=== PATIENT | female | born 1945 | race Caucasian/White ===

== ENCOUNTER → 2019-01-04 | Outpatient (CLI) | payer OTHER ==
[2014-11-26 10:55] VITALS: BP 148/58
[~2019-01-04] MED LIST: ALPR0.5T6 PO; ASPI325T8 PO; CITA20TA6 PO; CLOP75TA57 PO; CRAN1CAP4 PO; DOCU-150 PO; FERR-36 PO; FERR500P8 MC; FURO40TA4 PO; HYDR-2761 PO; HYDR-3135 PO; IOHEXOL 300 MG/ML 100ML VIAL. IV ONE; LEVO137T3 PO; LEVO150T5 PO; LEVO50TA5 PO; LOSA-73 PO; LOVA40TA2 PO; METF500T9 PO; METO25TA4 PO; OXYB10TA PO; POTA20TA4 PO; PREG75CA PO
--- NOTE | 2019-01-05 08:50 | RAD ---
Examination: CT ABDOMEN WO/W CONTRAST History: PANCREATIC MASS, [id number] 75ML, PRIOR CT W/O SENT Comparison/Correlation: 11/01/2014 CTA aorta with runoff Findings: Axial images of the abdomen were obtained prior to and following IV contrast. Sagittal and coronal reformatted images provided. Topogram demonstrates left total hip joint prosthesis. Visualized lung bases are clear. Liver, spleen, adrenal glands, and gallbladder fossa are unremarkable. 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 At the distal aspect of the pancreas, there is a low-attenuation region which does not change much in density on postcontrast imaging. This structure measures 2.3 cm x 1.8 cm with Hounsfield units of approximately 35 on precontrast, postcontrast arterial phase and portal venous phase series. Relatively low attenuation of the pancreatic uncinate is also evident although ill-defined. No significant change in densities noted on precontrast versus postcontrast imaging. There is no pancreatic ductal dilatation. No common bile duct dilatation. Right renal upper pole calyceal calculus measuring 0.3 cm diameter is present. Right extrarenal pelvis is noted. Left extra renal pelvis is also present to a lesser extent. Atherosclerotic calcific involvement of the abdominal aorta is noted. Aortobifemoral graft is seen at the infrarenal level and opacifies with contrast. Significant atherosclerotic, calcific involvement of the [place] infrarenal abdominal aorta and iliac arteries is noted. No bowel obstruction or extraluminal gas. Nonspecific circumferential thickening of proximal jejunum likely related to contraction. No ascites or pelvic free fluid. No inflammatory changes about the cecum. Multilevel degenerative disc space narrowing of the lumbar spine from L2 to S1 noted. Laminectomy defect at the right L5 level noted. Correlate with previous intervention. 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 At the distal aspect of the pancreas, there is low attenuation present which does not enhance. This may represent a complex cystic structure or other nonaggressive process. It is new since the previous exam of 11/01/2014 CTA of the abdomen with runoff. Consider further characterization with MR of the pancreas without and with contrast. Nonobstructive right renal calculus. PQRS Compliance Statement: One or more of the following individualized dose reduction techniques were utilized for this examination: 1. Automated exposure control 2. Adjustment of the mA and/or kV according to patient size 3. Use of iterative reconstruction technique Electronically signed by: Fuad Preston MD (01/05/2019 8:47 AM) [facility]
== END | disposition home or self-care (01) ==
LOC: CT 09:55
PROVIDERS: ATTEND Internal Medicine Hematology & Oncology
DX: N20.0 Calculus of kidney (principal); M48.07 Spinal stenosis, lumbosacral region; Z90.411 Acquired partial absence of pancreas; Z87.891 Personal history of nicotine dependence
CPT/HCPCS: 74170; Q9967

== ENCOUNTER 2019-04-21 15:36 | Emergency (ER) | payer OTHER ==
[~2019-04-21] VITALS: Ht 157.5 cm; Wt 85.3 kg
[~2019-04-21 15:36] MED LIST changes: -IOHEXOL 300 MG/ML 100ML VIAL. IV ONE
--- NOTE | 2019-04-21 16:11 | PHYS DOC ---
Past Medical History Past Medical History: Anxiety, Diabetes-Type II, Fibromyalgia, High Cholesterol, Hypertension, Hypothyroid, UTI, Other Additional Past Medical Histor: PERIPHERAL NEUROPATHY, PAD (JESUS MANUEL NAVARRETE APRN) Past Surgical History: Coronary Bypass Surgery, Hip Replacement, Hysterectomy Additional Past Surgical Histo: RECTAL SEAL, BLADDER REPAIR, BILAT CARPAL TUNNEL, ANGIO SEAL CAROTID (JESUS MANUEL NAVARRETE APRN) Alcohol Use: Rarely Drug Use: None (JESUS MANUEL NAVARRETE APRN) Adult General Chief Complaint Chief Complaint: LOWER EXT PAIN HPI HPI Patient is a 74 year old female that presents with shortness of breath has been ongoing her minimally for month. The patient also has been having bilateral chest tightness, fatigue, dizziness and states this been times that she felt confused over the last month. The patient over the last several days has also been having right leg pain. The patient went and saw Dr. manzanares, a accounting auditor today who sent her to the ER for a pulmonary embolus workup. The patient has lung cancer and ended radiation in February. Denies any pain and rates it 0 out of 10 in severity. (JESUS MANUEL NAVARRETE APRN) Review of Systems Review of Systems Constitutional: Denies fever or chills. Reports dizziness and fatigue. Eyes: Denies change in visual acuity, redness, or eye pain [] HENT: Denies nasal congestion or sore throat [] Respiratory: Reports shortness of breath [] Cardiovascular: No additional information not addressed in HPI [] GI: Denies abdominal pain, nausea, vomiting, bloody stools or diarrhea [] : Denies dysuria or hematuria [] Musculoskeletal: Denies back pain or joint pain [] Integument: reports bruising. Neurologic: Denies headache, focal weakness or sensory changes [] Endocrine: Denies polyuria or polydipsia [] Complete systems were reviewed and found to be within normal limits, except as documented in this note. (JESUS MANUEL NAVARRETE APRN) Current Medications Current Medications Current Medications Medications (Trade) Dose Ordered Sig/Shyam Start Time Stop Time Status Last Admin Dose Admin Info (CONTRAST GIVEN -- Rx MONITORING) 1 each PRN DAILY PRN 04/21/19 17:30 04/21/19 19:20 DC Iohexol (Omnipaque 350 Mg/ml) 90 ml 1X ONCE 04/21/19 18:00 04/21/19 18:01 DC Potassium Chloride (Klor-Con) 60 meq 1X ONCE 04/21/19 18:00 04/21/19 18:02 DC Sodium Chloride 500 ml @ 500 mls/hr 1X ONCE 04/21/19 16:15 04/21/19 17:14 DC 04/21/19 18:21 500 MLS/HR (MICHAEL RAGLAND MD) Allergies Allergies Allergies Coded Allergies Type Severity Reaction Last Updated Verified No Known Drug Allergies 11/20/14 No (MICHAEL RAGLAND MD) Physical Exam Physical Exam Constitutional: Well developed, well nourished, no acute distress, non-toxic appearance. [] HENT: Normocephalic, atraumatic, bilateral external ears normal, oropharynx moist, no oral exudates, nose normal. [] Eyes: PERRLA, EOMI, conjunctiva normal, no discharge. [] Neck: Normal range of motion, no tenderness, supple, no stridor. [] Cardiovascular:Heart rate regular rhythm, no murmur [] Lungs & Thorax: Bilateral breath sounds clear to auscultation with exception of left lower lung wheezing. Abdomen: Bowel sounds normal, soft, no tenderness, no masses, no pulsatile masses. [] Skin: Warm, dry, no erythema, no rash. has bruising on right leg, and bruises on abdomen. Back: No tenderness, no CVA tenderness. [] Extremities: R lower leg edema and tenderness to calf and posterior knee. Neurologic: Alert and oriented X 3, normal motor function, normal sensory function, no focal deficits noted. [] Psychologic: Affect normal, judgement normal, mood normal. [] (JESUS MANUEL NAVARRETE APRN) Current Patient Data Vital Signs Vital Signs Date Time Temp Pulse Resp B/P (MAP) Pulse Ox O2 Delivery O2 Flow Rate FiO2 04/21/19 18:30 58 129/56 (80) 04/21/19 17:19 16 Room Air 04/21/19 16:18 98 04/21/19 16:00 98.3 98.3 (MICHAEL RAGLAND MD) Lab Values Laboratory Tests Test 04/21/19 16:50 04/21/19 18:20 White Blood Count 7.5 x10^3/uL (4.0-11.0) Red Blood Count 4.55 x10^6/uL (3.50-5.40) Hemoglobin 13.9 g/dL (12.0-15.5) Hematocrit 40.2 % (36.0-47.0) Mean Corpuscular Volume 88 fL (79-100) Mean Corpuscular Hemoglobin 31 pg (25-35) Mean Corpuscular Hemoglobin Concent 35 g/dL (31-37) Red Cell Distribution Width 15.0 % (11.5-14.5) H Platelet Count 188 x10^3/uL (140-400) Neutrophils (%) (Auto) 64 % (31-73) Lymphocytes (%) (Auto) 18 % (24-48) L Monocytes (%) (Auto) 12 % (0-9) H Eosinophils (%) (Auto) 5 % (0-3) H Basophils (%) (Auto) 1 % (0-3) Neutrophils # (Auto) 4.8 x10^3/uL (1.8-7.7) Lymphocytes # (Auto) 1.4 x10^3/uL (1.0-4.8) Monocytes # (Auto) 0.9 x10^3/uL (0.0-1.1) Eosinophils # (Auto) 0.4 x10^3/uL (0.0-0.7) Basophils # (Auto) 0.1 x10^3/uL (0.0-0.2) Sodium Level 144 mmol/L (136-145) Potassium Level 2.9 mmol/L (3.5-5.1) *L Chloride Level 101 mmol/L (98-107) Carbon Dioxide Level 33 mmol/L (21-32) H Anion Gap 10 (6-14) Blood Urea Nitrogen 16 mg/dL (7-20) Creatinine 1.1 mg/dL (0.6-1.0) H Estimated GFR (Cockcroft-Gault) 48.3 BUN/Creatinine Ratio 15 (6-20) Glucose Level 122 mg/dL (70-99) H Calcium Level 8.7 mg/dL (8.5-10.1) Magnesium Level 1.9 mg/dL (1.8-2.4) Total Bilirubin 0.7 mg/dL (0.2-1.0) Aspartate Amino Transferase (AST) 33 U/L (15-37) Alanine Aminotransferase (ALT) 26 U/L (14-59) Alkaline Phosphatase 144 U/L (46-116) H Troponin I Quantitative < 0.017 ng/mL (0.000-0.055) IP-Xeu-R-Type Natriuretic Peptide 1117 pg/mL (0-449) H Total Protein 7.4 g/dL (6.4-8.2) Albumin 4.0 g/dL (3.4-5.0) Albumin/Globulin Ratio 1.2 (1.0-1.7) Prothrombin Time 12.5 SEC (11.7-14.0) Prothrombin Time INR 1.0 (0.8-1.1) Activated Partial Thromboplast Time 31 SEC (24-38) Laboratory Tests 04/21/19 16:50 Laboratory Tests 04/21/19 16:50 (MICHAEL RAGLAND MD) Lab Values Laboratory Tests Test 04/21/19 16:50 04/21/19 18:20 White Blood Count 7.5 x10^3/uL (4.0-11.0) Red Blood Count 4.55 x10^6/uL (3.50-5.40) Hemoglobin 13.9 g/dL (12.0-15.5) Hematocrit 40.2 % (36.0-47.0) Mean Corpuscular Volume 88 fL (79-100) Mean Corpuscular Hemoglobin 31 pg (25-35) Mean Corpuscular Hemoglobin Concent 35 g/dL (31-37) Red Cell Distribution Width 15.0 % (11.5-14.5) H Platelet Count 188 x10^3/uL (140-400) Neutrophils (%) (Auto) 64 % (31-73) Lymphocytes (%) (Auto) 18 % (24-48) L Monocytes (%) (Auto) 12 % (0-9) H Eosinophils (%) (Auto) 5 % (0-3) H Basophils (%) (Auto) 1 % (0-3) Neutrophils # (Auto) 4.8 x10^3/uL (1.8-7.7) Lymphocytes # (Auto) 1.4 x10^3/uL (1.0-4.8) Monocytes # (Auto) 0.9 x10^3/uL (0.0-1.1) Eosinophils # (Auto) 0.4 x10^3/uL (0.0-0.7) Basophils # (Auto) 0.1 x10^3/uL (0.0-0.2) Sodium Level 144 mmol/L (136-145) Potassium Level 2.9 mmol/L (3.5-5.1) *L Chloride Level 101 mmol/L (98-107) Carbon Dioxide Level 33 mmol/L (21-32) H Anion Gap 10 (6-14) Blood Urea Nitrogen 16 mg/dL (7-20) Creatinine 1.1 mg/dL (0.6-1.0) H Estimated GFR (Cockcroft-Gault) 48.3 BUN/Creatinine Ratio 15 (6-20) Glucose Level 122 mg/dL (70-99) H Calcium Level 8.7 mg/dL (8.5-10.1) Magnesium Level 1.9 mg/dL (1.8-2.4) Total Bilirubin 0.7 mg/dL (0.2-1.0) Aspartate Amino Transferase (AST) 33 U/L (15-37) Alanine Aminotransferase (ALT) 26 U/L (14-59) Alkaline Phosphatase 144 U/L (46-116) H Troponin I Quantitative < 0.017 ng/mL (0.000-0.055) OZ-Dhk-Z-Type Natriuretic Peptide 1117 pg/mL (0-449) H Total Protein 7.4 g/dL (6.4-8.2) Albumin 4.0 g/dL (3.4-5.0) Albumin/Globulin Ratio 1.2 (1.0-1.7) Prothrombin Time 12.5 SEC (11.7-14.0) Prothrombin Time INR 1.0 (0.8-1.1) Activated Partial Thromboplast Time 31 SEC (24-38) Laboratory Tests 04/21/19 16:50 Laboratory Tests 04/21/19 16:50 (JESUS MANUEL NAVARRETE APRN) EKG EKG Sinus rate of 62, No STEMI. (Interpreted by Dr. Ragland).[] (JESUS MANUEL NAVARRETE APRN) Radiology/Procedures Radiology/Procedures [address] [place] [address] IMAGING REPORT Signed PATIENT: ALYSON MARAVILLA ACCOUNT: [id number] : 1945 LOCATION: ER AGE: 74 SEX: F EXAM STATUS: REG ER ORD. PHYSICIAN: JESUS MANUEL NAVARRETE APRN REASON: sob, right leg pain, dizziness PROCEDURE: CT ANGIOGRAPHY CHEST PQRS Compliance Statement: One or more of the following individualized dose reduction techniques were utilized for this examination: 1. Automated exposure control 2. Adjustment of the mA and/or kV according to patient size 3. Use of iterative reconstruction technique CT angiography chest with contrast 04/21/2019 4:01 PM INDICATION: Shortness of breath, right leg pain and dizziness COMPARISON: CT abdomen January 04, 2019, MRI abdomen January 06, 2019 TECHNIQUE: Axial CT images of the chest were obtained after the intravenous administration of nonionic contrast. Coronal and sagittal reformats are provided. Maximum intensity projection images of the thoracic vasculature are provided. FINDINGS: There are no pathologically enlarged axillary, mediastinal or hilar lymph nodes. The heart size is within normal limits. No significant pericardial effusion. Thoracic aorta is normal in course and caliber. Median sternotomy changes are present. Left common carotid artery stent graft is identified. Aortic valvular prosthesis is identified. Coronary artery vascular calcifications are present. There is adequate opacification of the pulmonary arterial system. There there are no filling defects within the pulmonary arterial system to suggest acute or chronic pulmonary embolus. 13 x 8 mm spiculated nodule is identified in the right upper lobe there is mild centrilobular pulmonary emphysema. Mild bronchial wall thickening compatible with bronchitis. No pleural effusions, pulmonary vascular congestion or pneumothorax. There is an ill-defined hypodense lesion involving the tail the pancreas measuring 2.7 x 2.6 cm. No suspicious osseous lesions are visualized. Small hiatal hernia. IMPRESSION: There is no evidence for acute or chronic pulmonary embolism. There is a 15 x 8 mm spiculated nodule in the right upper lobe concerning for primary lung malignancy. Further evaluation with PET/CT, tissue sampling or 3 month follow-up chest CT is recommended. Ill-defined hypodensity involving the tail the pancreas measuring 2.7 x 2.6 cm. Findings may represent improving inflammatory changes from prior MRI of the abdomen of January 06, 2019. 3 month follow-up MRI may be of benefit. Electronically signed by: Mike Cheng MD (04/21/2019 6:03 PM) [facility] DICTATED and SIGNED BY: MIKE CHENG MD DATE: 04/21/19 964 [][facility] [address] [facility] [place] [address] IMAGING REPORT Signed PATIENT: ALYSON MARAVILLA ACCOUNT: [id number] : 1945 LOCATION: ER AGE: 74 SEX: F EXAM STATUS: REG ER ORD. PHYSICIAN: JESUS MANUEL NAVARRETE APRN REASON: right leg pain PROCEDURE: VENOUS LOWER EXTREMITY RIGHT Ultrasound venous Doppler INDICATION:Right leg pain TECHNIQUE: Grayscale, color Doppler and spectral waveform ultrasound images of the right lower extremity deep veins obtained. COMPARISON: None FINDINGS: The interrogated deep veins are compressible and demonstrate evidence of blood flow with normal respiratory variation and response to augmentation. IMPRESSION: No sonographic evidence of acute DVT of the right lower extremity deep veins. Electronically signed by: Paul Green DO (04/21/2019 4:27 PM) [facility] DICTATED and SIGNED BY: PAUL GREEN DO DATE: 04/21/19 1624 (JESUS MANUEL NAVARRETE APRN) Course & Med Decision Making Course & Med Decision Making Pertinent Labs and Imaging studies reviewed. (See chart for details) Per request of pulmonary willl get CT of chest, and venous ultrasound. Will also obtain EKG, and labs. CT chest is negative for PE, ultrasound of R leg is negative. CT chest comments on Lung Cancer which is already being treated and known. Labs are unremarkable with exception of K of 2.9 (replaced) and BNP of 1100, which patient is being treated for. Will d/c home and have patient follow up with primary care for further workup. Likely symptoms are related to lung cancer. (JESUS MANUEL NAVARRETE APRN) Course & Med Decision Making I was not involved in the care of this patient after 1800. (MICHAEL RAGLAND MD) Dragon Disclaimer Dragon Disclaimer This electronic medical record was generated, in whole or in part, using a voice recognition dictation system. (JESUS MANUEL NAVARRETE APRN) Departure Departure Impression: Primary Impression: Shortness of breath Additional Impression: Hypokalemia Disposition: 01 HOME, SELF-CARE Condition: STABLE Referrals: SUSANNAH MORALES MD (PCP) Patient Instructions: Hypokalemia Additional Instructions: Thank you for visiting [facility]. We appreciate you trusting us with your care. If any additional problems come up don't hesitate to return to visit us. Please follow up with your primary care provider so they can plan additional care if needed and know about the problem that you had. If symptoms worsen come back to the Emergency Department. Any concerning symptoms that start such as chest pain, shortness of air, weakness or numbness on one side of the body, running high fevers or any other concerning symptoms return to the ER. Please follow up with primary care and oncology. Come back to ER if symptoms worsen. Problem Qualifiers JESUS MANUEL NAVARRETE APRN Apr 21, 2019 16:11 MICHAEL RAGLAND MD Apr 22, 2019 06:22
[2019-04-21] MEDS ORDERED: IV NORMAL SALINE 500ML BAG 500 ML IV ONE (16:15)
--- NOTE | 2019-04-21 16:30 | RAD ---
Ultrasound venous Doppler INDICATION:Right leg pain TECHNIQUE: Grayscale, color Doppler and spectral waveform ultrasound images of the right lower extremity deep veins obtained. COMPARISON: None FINDINGS: The interrogated deep veins are compressible and demonstrate evidence of blood flow with normal respiratory variation and response to augmentation. IMPRESSION: No sonographic evidence of acute DVT of the right lower extremity deep veins. Electronically signed by: Paul Green DO (04/21/2019 4:27 PM) [facility]
[2019-04-21 16:58] LABS: BASO # 0.1 x10^3/uL (0.0-0.2); BASO % 1 % (0-3); EOS # 0.4 x10^3/uL (0.0-0.7); EOS % 5 % (0-3); HEMATOCRIT 40.2 % (36.0-47.0); HEMOGLOBIN 13.9 g/dL (12.0-15.5); LYMPH # 1.4 x10^3/uL (1.0-4.8); LYMPH % 18 % (24-48); MEAN CORPUSCULAR HEMOGLOBIN 31 pg (25-35); MEAN CORPUSCULAR HGB CONC 35 g/dL (31-37); MEAN CORPUSCULAR VOLUME 88 fL (79-100); MONO # 0.9 x10^3/uL (0.0-1.1); MONO % 12 % (0-9); NEUT # 4.8 x10^3/uL (1.8-7.7); NEUT % 64 % (31-73); PLATELET COUNT 188 x10^3/uL (140-400); RED BLOOD COUNT 4.55 x10^6/uL (3.50-5.40); WHITE BLOOD COUNT 7.5 x10^3/uL (4.0-11.0)
[2019-04-21 17:08] LABS: PROTHROMBIN TIME PATIENT 12.5 SEC (11.7-14.0)
[2019-04-21 17:16] LABS: ALBUMIN/GLOBULIN RATIO 1.2 (1.0-1.7); CALCIUM 8.7 mg/dL (8.5-10.1); CREATININE 1.1 mg/dL (0.6-1.0); GFR 48.3; TOTAL BILIRUBIN 0.7 mg/dL (0.2-1.0); TOTAL PROTEIN 7.4 g/dL (6.4-8.2)
[2019-04-21 17:19] LABS: POTASSIUM 2.9 mmol/L (3.5-5.1)
[2019-04-21] MEDS ORDERED: CONTRAST GIVEN. MC PRN (17:30)
[2019-04-21] MEDS ORDERED: POTASSIUM CHLORIDE 20 MEQ TABLET.ER. PO ONE ×3 (17:30→18:00)
[2019-04-21] MEDS ORDERED: IOHEXOL 350 MG/ML 100 ML VIAL. IV ONE (18:00)
--- NOTE | 2019-04-21 18:06 | RAD ---
PQRS Compliance Statement: One or more of the following individualized dose reduction techniques were utilized for this examination: 1. Automated exposure control 2. Adjustment of the mA and/or kV according to patient size 3. Use of iterative reconstruction technique CT angiography chest with contrast 04/21/2019 4:01 PM INDICATION: Shortness of breath, right leg pain and dizziness COMPARISON: CT abdomen January 04, 2019, MRI abdomen January 06, 2019 TECHNIQUE: Axial CT images of the chest were obtained after the intravenous administration of nonionic contrast. Coronal and sagittal reformats are provided. Maximum intensity projection images of the thoracic vasculature are provided. FINDINGS: There are no pathologically enlarged axillary, mediastinal or hilar lymph nodes. The heart size is within normal limits. No significant pericardial effusion. Thoracic aorta is normal in course and caliber. Median sternotomy changes are present. Left common carotid artery stent graft is identified. Aortic valvular prosthesis is identified. Coronary artery vascular calcifications are present. There is adequate opacification of the pulmonary arterial system. There there are no filling defects within the pulmonary arterial system to suggest acute or chronic pulmonary embolus. 13 x 8 mm spiculated nodule is identified in the right upper lobe there is mild centrilobular pulmonary emphysema. Mild bronchial wall thickening compatible with bronchitis. No pleural effusions, pulmonary vascular congestion or pneumothorax. There is an ill-defined hypodense lesion involving the tail the pancreas measuring 2.7 x 2.6 cm. No suspicious osseous lesions are visualized. Small hiatal hernia. IMPRESSION: There is no evidence for acute or chronic pulmonary embolism. There is a 15 x 8 mm spiculated nodule in the right upper lobe concerning for primary lung malignancy. Further evaluation with PET/CT, tissue sampling or 3 month follow-up chest CT is recommended. Ill-defined hypodensity involving the tail the pancreas measuring 2.7 x 2.6 cm. Findings may represent improving inflammatory changes from prior MRI of the abdomen of January 06, 2019. 3 month follow-up MRI may be of benefit. Electronically signed by: Melonie Valenzuela MD (04/21/2019 6:03 PM) [facility]
--- NOTE | 2019-04-21 18:24 | EKG ---
[facility] [address] [place] [address] Test Date: 2019-04-21 Test Time: 16:04:46 Pat Name: ALYSON MARAVILLA Department: Room: Gender: F Uniformer: : 1945 Requested By: JESUS MANUEL NAVARRETE Order Number: [id number] Reading MD: Measurements Intervals [place] Rate: 62 P: 49 LA: 176 QRS: 50 QRSD: 88 T: 43 QT: 438 QTc: 447 Interpretive Statements SINUS RHYTHM NORMAL ECG RI6.01 Unconfirmed report No previous ECG available for comparison
[2019-04-21 18:30] VITALS: BP 129/56
--- NOTE | 2019-04-26 13:32 | NUR ---
Late entry made to Medical Record. IV Stop time transcribed from eMAR to IV spreadsheet
== END 2019-04-21 19:07 | disposition home or self-care (01) ==
LOC: ER 15:36
DX: R06.02 Shortness of breath (principal); E87.6 Hypokalemia; R07.89 Other chest pain; R53.83 Other fatigue; R42 Dizziness and giddiness; M79.604 Pain in right leg; R60.0 Localized edema; F41.9 Anxiety disorder, unspecified; E78.00 Pure hypercholesterolemia, unspecified; I10 Essential (primary) hypertension; E11.40 Type 2 diabetes mellitus with diabetic neuropathy, unspecified; E03.9 Hypothyroidism, unspecified; Z95.1 Presence of aortocoronary bypass graft; Z90.710 Acquired absence of both cervix and uterus; Z96.649 Presence of unspecified artificial hip joint
CPT/HCPCS: 36415; 71275; 80053; 83735; 83880; 84484; 85025; 85610; 85730; 93005; 93971; 96360; 99285; J7040

== ENCOUNTER → 2019-06-02 | Outpatient (CLI) | payer OTHER ==
[~2019-06-02] MED LIST changes: +GADOTERATE 7.5 MMOL/15ML VIAL. IVP ONE; +METF500T11 PO; -METF500T9 PO; -OXYB10TA PO; +OXYB10TA2 PO
--- NOTE | 2019-06-02 13:30 | RAD ---
BRAIN WO/W CONTRAST History: Headache. Lightheadedness. History of lung cancer. Technique: Multiplanar, multi sequential pre and postcontrast MR imaging was performed of the brain. Contrast: 17 mL Dotarem. Comparison: January 10, 2019 Findings: No acute infarct. No intracranial hemorrhage. No mass effect. No hydrocephalus. No pathologic enhancement. Moderate brain parenchymal volume loss. Chronic left cerebellar infarct, unchanged. Moderate foci of T2/FLAIR hyperintensity within the hemispheric white matter including the chriss, most often due to chronic microvascular ischemia, similar compared to prior. Punctate gradient hypointensity within the right cerebellum, may relate to prior microhemorrhage. Imaged orbits are unremarkable. Imaged paranasal sinuses and mastoid air cells are clear. Multifocal calvarial nonenhancing lesions, likely hemangiomas, unchanged. C1-C2 degenerative changes with posterior pannus formation, unchanged compared to prior. Impression: 1. No acute intracranial abnormality. No evidence of metastatic disease. 2. Moderate sequela chronic microvascular ischemia and brain parenchymal volume loss. 3. Small chronic left cerebellar infarct. 4. Unchanged C1-C2 degenerative changes and pannus formation. Electronically signed by: Rafael Brown DO (06/02/2019 1:27 PM) [id number]
== END | disposition home or self-care (01) ==
LOC: MRI 14:43
PROVIDERS: ATTEND Internal Medicine Hematology & Oncology
DX: C34.11 Malignant neoplasm of upper lobe, right bronchus or lung (principal); I63.9 Cerebral infarction, unspecified; M47.812 Spondylosis without myelopathy or radiculopathy, cervical region
CPT/HCPCS: 70553; A9575

== ENCOUNTER 2019-07-04 06:47 | Outpatient (CLI) | payer OTHER ==
[~2019-07-04] VITALS: Ht 157.5 cm; Wt 82.6 kg
[2019-07-04] VITALS (8 sets, daily range): BP systolic 122–173; BP diastolic 53–89
[~2019-07-04 06:47] MED LIST changes: -GADOTERATE 7.5 MMOL/15ML VIAL. IVP ONE
[2019-07-04] MEDS ORDERED: PREG150C PO (07:26)
[2019-07-04] MEDS ORDERED: NITR0.4T22 SL (07:26)
[2019-07-04] MEDS ORDERED: LACT1CAP8 PO (07:26)
[2019-07-04] MEDS ORDERED: BIOT1CAP3 PO (07:26)
[2019-07-04] MEDS ORDERED: CARV6.2511 PO (07:26)
[2019-07-04] MEDS ORDERED: ATORVASTATIN CA80 MG PO (07:26)
[2019-07-04] MEDS ORDERED: PANT40TA77 PO (07:26)
[2019-07-04] MEDS ORDERED: TRAM50TA PO (07:26)
[2019-07-04] MEDS ORDERED: FERR325T14 PO (07:26)
[2019-07-04] MEDS ORDERED: ESCITALOPRAM OX20 MG PO (07:26)
[2019-07-04] MEDS ORDERED: FURO40TA4 PO (07:26)
[2019-07-04] MEDS ORDERED: AMLO5TAB10 PO (07:26)
[2019-07-04] MEDS ORDERED: POTA20TA4 PO (07:26)
[2019-07-04] MEDS ORDERED: TEMA15CA PO (07:26)
[2019-07-04] MEDS ORDERED: LEVO125T5 PO (07:26)
[2019-07-04] MEDS ORDERED: ASPI-630 PO (07:26)
[2019-07-04 07:32] LABS: BASO % 1 % (0-3); EOS # 0.4 x10^3/uL (0.0-0.7); EOS % 7 % (0-3); HEMATOCRIT 42.8 % (36.0-47.0); HEMOGLOBIN 14.5 g/dL (12.0-15.5); LYMPH # 0.9 x10^3/uL (1.0-4.8); LYMPH % 14 % (24-48); MEAN CORPUSCULAR HEMOGLOBIN 32 pg (25-35); MEAN CORPUSCULAR HGB CONC 34 g/dL (31-37); MEAN CORPUSCULAR VOLUME 93 fL (79-100); MONO # 0.7 x10^3/uL (0.0-1.1); MONO % 11 % (0-9); NEUT # 4.5 x10^3/uL (1.8-7.7); NEUT % 68 % (31-73); PLATELET COUNT 201 x10^3/uL (140-400); RED BLOOD COUNT 4.62 x10^6/uL (3.50-5.40); RED CELL DISTRIBUTION WIDTH 15.3 % (11.5-14.5); WHITE BLOOD COUNT 6.5 x10^3/uL (4.0-11.0)
[2019-07-04 07:42] LABS: PROTHROMBIN TIME PATIENT 12.5 SEC (11.7-14.0)
[2019-07-04 07:47] LABS: CALCIUM 9.4 mg/dL (8.5-10.1); CREATININE 1.1 mg/dL (0.6-1.0); GFR 48.3; POTASSIUM 3.8 mmol/L (3.5-5.1)
[2019-07-04] MEDS ORDERED: LIDOCAINE 1%/EPI 1:100,000 20 ML VIAL. ONE (08:19)
[2019-07-04] MEDS ORDERED: MIDAZOLAM HCL/PF 2 MG/2 ML VIAL. ONE (08:33)
[2019-07-04] MEDS ORDERED: fentaNYL PF VIAL 100 MCG/2 ML VIAL ONE (08:33)
[2019-07-04] MEDS ORDERED: MIDAZOLAM HCL/PF 2 MG/2 ML VIAL. IV ONE (09:00)
[2019-07-04] MEDS ORDERED: fentaNYL PF VIAL 100 MCG/2 ML VIAL IV ONE (09:00)
[2019-07-04] MEDS ORDERED: LIDOCAINE 1%/EPI 1:100,000 20 ML VIAL. SQ ONE (09:00)
--- NOTE | 2019-07-04 10:50 | NUR ---
rt chest/IJ dressings clean & dry, no drainage noted. tolerating po well. VSS. denies any pain,nausea or dizziness. ambulated w/o problem. d/c instructions given. questions answered. out to vehicle per w/c, pt's dtr to drive her home
--- NOTE | 2019-07-04 11:27 | RAD ---
Procedure: Ultrasound and fluoroscopically guided placement of right internal jugular power port.. 07/04/2019 9:23 AM Clinical Indication: Lung cancer. Pancreatic cancer. Chemotherapy, with no plans for radiation therapy. Sedation: Conscious sedation was administered for 30 minutes. The patient was monitored by a qualified independent observer throughout the time of sedation. Please refer to the medical record for exact doses of medications utilized to achieve moderate sedation. Fluoroscopy time: 3.1 minutes Dose area product: 5 Gycm2 Consent: The procedure was explained in its entirety to the patient or the patients designated outside sales account representative by a member of the treatment team, including a discussion of the risks, benefits and commonly accepted alternatives to the procedure, as well as the expected consequences of no therapy whatsoever. Discussion of the risks included, but was not limited to, those that are most frequent and those that are rare but possibly severe or life-threatening, as well as the possibility of unforeseen complications. Technique and Findings: All elements of maximal sterile barrier technique including the use of a cap, mask, sterile gown, sterile gloves, large sterile sheet, appropriate hand hygiene, and 2% chlorhexidine for cutaneous antisepsis (or acceptable alternative antiseptic per current guidelines) were followed for this procedure. Following informed consent, and a timeout procedure, the patient was prepped and draped in the usual sterile fashion. Ultrasound interrogation of the right neck revealed patency and compressibility of the right internal jugular vein. A 21-gauge micropuncture was then used to gain access to this vein under ultrasound guidance. A hard copy ultrasound image was recorded. The needle was exchanged over a wire for a sheath. A 1 inch incision was made several centimeters inferior to the venotomy site. A catheter was tunneled from this site dermatotomy site in the neck. Catheter was advanced through peel-away sheath such that its tip was in the proximal right atrium with the patient supine. The catheter was trimmed to length and connected to the port reservoir. The port was found to flush and aspirate normally. The wound was closed in layers using 4-0 Vicryl suture. Sterile dressings were applied. Impression: Successful ultrasound and fluoroscopically guided placement of a right internal jugular PowerPort
== END 2019-07-04 10:50 | disposition home or self-care (01) ==
LOC: INTRAD 06:47
PROVIDERS: ATTEND Internal Medicine Hematology & Oncology
DX: Z45.2 Encounter for adjustment and management of vascular access device (principal); C34.11 Malignant neoplasm of upper lobe, right bronchus or lung; Z79.01 Long term (current) use of anticoagulants
CPT/HCPCS: 36415; 36561; 76937; 77001; 80048; 85025; 85610; 99152; 99153; C1751; C1892; J0696; J2250; J3010; J3490